=== PATIENT | female | born 1995 | race Caucasian/White ===

== ENCOUNTER 2018-08-27 18:54 | Emergency (ER) | payer BC ==
[2018-08-27 19:57] LABS: Urine Appearance Cloudy; Urine Bacteria Absent (Absent); Urine Bilirubin Negative (Negative); Urine Blood 3+ (Negative); Urine Color Yellow; Urine Glucose Negative (Negative); Urine Ketones Negative (Negative); Urine Nitrite Negative (Negative); Urine Protein Negative (Negative); Urine Red Blood Cell 2+(6-10/hpf) (Absent); Urine Specific Gravity 1.021 (1.010-1.030); Urine Squamous Epithelial Cell Present (Absent); Urine Urobilinogen Negative (Negative); Urine White Blood Cell Trace(0-5/hpf) (Absent)
[2018-08-27 20:54] LABS: ABS Basophils 0.1 10^3/ul (0-0.2); ABS Eosinophils 0.2 10^3/ul (0-0.6); ABS Lymphocytes 4.5 10^3/ul (1.0-4.8); ABS Monocytes 0.6 10^3/ul (0-0.8); ABS Neutrophils 5.8 10^3/ul (1.5-7.7); ABS Nucleated RBC 0 10^3/ul; Eosinophil % 1.7 %; Hematocrit 42 % (33-41); Hemoglobin 14.1 g/dL (12.0-16.0); Lymphocyte % 40.5 %; Mean Corpuscular HGB Conc 34 g/dL (31-36); Mean Corpuscular Hemoglobin 30 pg (27-31); Mean Corpuscular Volume 87 fL (80-97); Mean Platelet Volume 9.6 fL (7.4-10.4); Nucleated Red Blood Cells % 0.1; Platelet Count 263 10^3/uL (150-450); Red Blood Count 4.78 10^6 /uL (3.70-4.87); Red Cell Distribution Width 13 % (10.5-15); White Blood Count 11.2 10^3/uL (3.5-10.8)
[2018-08-27 21:08] LABS: ALT 21 U/L (7-52); AST 18 U/L (13-39); Albumin 4.5 g/dL (3.2-5.2); Albumin/Globulin Ratio 1.3 (1-3); Alkaline Phosphatase 58 U/L (34-104); Anion Gap 8 mmol/L (2-11); BUN/Creatinine Ratio 12.5 (8-20); Blood Urea Nitrogen 9 mg/dL (6-24); C Reactive Protein 21.88 mg/L (<8.01); CO2 Carbon Dioxide 26 mmol/L (22-32); Calcium 9.9 mg/dL (8.6-10.3); Chloride 103 mmol/L (101-111); EGFR African American 123.7 (>60); EGFR Non-African American 102.3 (>60); Globulin 3.5 g/dL (2-4); Glucose 93 mg/dL (70-100); Potassium 3.8 mmol/L (3.5-5.0); Sodium 137 mmol/L (135-145)
[2018-08-27 21:14] LABS: HCG Pregnancy < 0.60 mIU/mL
[2018-08-27] MEDS ORDERED: Sucralfate TAB* 1 GM PO ONE (22:48)
[2018-08-27] MEDS ORDERED: Famotidine TAB* 20 MG PO ONE (22:48)
[2018-08-27] MEDS ORDERED: Al Hydrox/Mg Hydrox/Simet LIQ* 30 ML UDC PO ONE (22:49)
[2018-08-27] MEDS ORDERED: Lidocaine 2% VISCOUS* 15 ML UDC PO ONE (22:49)
--- NOTE | 2018-08-27 23:54 | ED ---
GI/ HPI - HPI Summary HPI Summary: 23-year-old female presents with Epigastric pain for the past 3 days. She states it is in the center and noted tonight radiates to the left flank. Denies any urinary symptoms. Denies any nausea vomiting. She admits to occasional heartburn. No chest or shortness breath. she denies any abnormal vaginal discharge. No diarrhea. No blood in stool or dark tarry stool. She did take some Pepto-Bismol which did not help. Never had this pain before. No previous belly surgery. Has no medical conditions. Is nondrinker. - History of Current Complaint Chief Complaint: EDAbdPain Time Seen by Provider: 08/27/18 22:33 Stated Complaint: ABD PAIN PER PT Pain Intensity: 0 - Allergy/Home Medications Allergies/Adverse Reactions: Allergies Allergy/AdvReac Type Severity Reaction Status Date / Time No Known Allergies Allergy Verified 08/27/18 18:58 Home Medications: Home Medications Norethindrone AC-Eth Estradiol [Loestrin 21 1.5-30 Tablet] 1 tab PO DAILY [History Confirmed 08/27/18] PMH/Surg Hx/FS Hx/Imm Hx Endocrine/Hematology History: Denies: Hx Anticoagulant Therapy Cardiovascular History: Denies: Hx Myocardial Infarction Infectious Disease History: No Infectious Disease History: Denies: Traveled Outside the [place] in Last 30 Days - Family History Known Family History: Positive: Non-Contributory - Social History Alcohol Use: Occasionally Substance Use Type: Reports: None Smoking Status (MU): Never Smoked Tobacco Review of Systems Negative: Fever Negative: Chest Pain Negative: Shortness Of Breath Positive: Abdominal Pain. Negative: Vomiting, Nausea All Other Systems Reviewed And Are Negative: Yes Physical Exam Triage Information Reviewed: Yes Vital Signs On Initial Exam: Initial Vitals Temp Pulse Resp BP Pulse Ox 97.6 F 88 14 135/84 98 08/27/18 18:59 08/27/18 18:59 08/27/18 18:59 08/27/18 18:59 08/27/18 18:59 Vital Signs Reviewed: Yes Appearance: Positive: Well-Appearing Skin: Positive: Warm, Dry Head/Face: Positive: Normal Head/Face Inspection Eyes: Positive: Normal, Conjunctiva Clear ENT: Positive: Pharynx normal Respiratory/Lung Sounds: Positive: Clear to Auscultation, Breath Sounds Present Cardiovascular: Positive: Normal, RRR Abdomen Description: Positive: Nontender, Soft Bowel Sounds: Positive: Present Musculoskeletal: Positive: Normal Neurological: Positive: Normal Psychiatric: Positive: Normal Diagnostics - Vital Signs Vital Signs Temp Pulse Resp BP Pulse Ox 08/27/18 23:01 73 139/90 99 08/27/18 23:00 91 99 08/27/18 22:41 98.6 F 08/27/18 22:30 83 177/91 100 08/27/18 20:02 98 F 76 20 125/72 100 08/27/18 18:59 97.6 F 88 14 135/84 98 - Laboratory Lab Results: Lab Results 08/27/18 08/27/18 08/27/18 Range/Units 19:45 20:43 20:43 WBC 11.2 H (3.5-10.8) 10^3/uL RBC 4.78 (3.70-4.87) 10^6 /uL Hgb 14.1 (12.0-16.0) g/dL Hct 42 H (33-41) % MCV 87 (80-97) fL MCH 30 (27-31) pg MCHC 34 (31-36) g/dL RDW 13 (10.5-15) % Plt Count 263 (150-450) 10^3/uL MPV 9.6 (7.4-10.4) fL Neut % (Auto) 51.3 % Lymph % (Auto) 40.5 % [place] % (Auto) 5.7 % Eos % (Auto) 1.7 % Baso % (Auto) 0.8 % Absolute Neuts (auto) 5.8 (1.5-7.7) 10^3/ul Absolute Lymphs (auto) 4.5 (1.0-4.8) 10^3/ul Absolute Monos (auto) 0.6 (0-0.8) 10^3/ul Absolute Eos (auto) 0.2 (0-0.6) 10^3/ul Absolute Basos (auto) 0.1 (0-0.2) 10^3/ul Absolute Nucleated RBC 0 10^3/ul Nucleated RBC % 0.1 Sodium 137 (135-145) mmol/L Potassium 3.8 (3.5-5.0) mmol/L Chloride 103 (101-111) mmol/L Carbon Dioxide 26 (22-32) mmol/L Anion Gap 8 (2-11) mmol/L BUN 9 (6-24) mg/dL Creatinine 0.72 (0.51-0.95) mg/dL Est GFR ( Amer) 123.7 (>60) Est GFR (Non-Af Amer) 102.3 (>60) BUN/Creatinine Ratio 12.5 (8-20) Glucose 93 (70-100) mg/dL Lactic Acid (0.5-2.0) mmol/L Calcium 9.9 (8.6-10.3) mg/dL Total Bilirubin 0.20 (0.2-1.0) mg/dL AST 18 (13-39) U/L ALT 21 (7-52) U/L Alkaline Phosphatase 58 (34-104) U/L C-Reactive Protein 21.88 H (<8.01) mg/L Total Protein 8.0 (6.4-8.9) g/dL Albumin 4.5 (3.2-5.2) g/dL Globulin 3.5 (2-4) g/dL Albumin/Globulin Ratio 1.3 (1-3) Lipase 28 (11.0-82.0) U/L Beta HCG, Quant < 0.60 mIU/mL Urine Color Yellow Urine Appearance Cloudy Urine pH 5.0 (5-9) Ur Specific [place] 1.021 (1.010-1.030) Urine Protein Negative (Negative) Urine Ketones Negative (Negative) Urine Blood 3+ A (Negative) Urine Nitrate Negative (Negative) Urine Bilirubin Negative (Negative) Urine Urobilinogen Negative (Negative) Ur Leukocyte Esterase Trace A (Negative) Urine WBC (Auto) Trace(0-5/hpf) (Absent) Urine RBC (Auto) 2+(6-10/hpf) A (Absent) Ur Squamous Epith Cells Present A (Absent) Urine Bacteria Absent (Absent) Hyaline Casts Present A (Absent) Urine Glucose Negative (Negative) 08/27/18 Range/Units 20:43 WBC (3.5-10.8) 10^3/uL RBC (3.70-4.87) 10^6 /uL Hgb (12.0-16.0) g/dL Hct (33-41) % MCV (80-97) fL MCH (27-31) pg MCHC (31-36) g/dL RDW (10.5-15) % Plt Count (150-450) 10^3/uL MPV (7.4-10.4) fL Neut % (Auto) % Lymph % (Auto) % [place] % (Auto) % Eos % (Auto) % Baso % (Auto) % Absolute Neuts (auto) (1.5-7.7) 10^3/ul Absolute Lymphs (auto) (1.0-4.8) 10^3/ul Absolute Monos (auto) (0-0.8) 10^3/ul Absolute Eos (auto) (0-0.6) 10^3/ul Absolute Basos (auto) (0-0.2) 10^3/ul Absolute Nucleated RBC 10^3/ul Nucleated RBC % Sodium (135-145) mmol/L Potassium (3.5-5.0) mmol/L Chloride (101-111) mmol/L Carbon Dioxide (22-32) mmol/L Anion Gap (2-11) mmol/L BUN (6-24) mg/dL Creatinine (0.51-0.95) mg/dL Est GFR ( Amer) (>60) Est GFR (Non-Af Amer) (>60) BUN/Creatinine Ratio (8-20) Glucose (70-100) mg/dL Lactic Acid 1.1 (0.5-2.0) mmol/L Calcium (8.6-10.3) mg/dL Total Bilirubin (0.2-1.0) mg/dL AST (13-39) U/L ALT (7-52) U/L Alkaline Phosphatase (34-104) U/L C-Reactive Protein (<8.01) mg/L Total Protein (6.4-8.9) g/dL Albumin (3.2-5.2) g/dL Globulin (2-4) g/dL Albumin/Globulin Ratio (1-3) Lipase (11.0-82.0) U/L Beta HCG, Quant mIU/mL Urine Color Urine Appearance Urine pH (5-9) Ur Specific [place] (1.010-1.030) Urine Protein (Negative) Urine Ketones (Negative) Urine Blood (Negative) Urine Nitrate (Negative) Urine Bilirubin (Negative) Urine Urobilinogen (Negative) Ur Leukocyte Esterase (Negative) Urine WBC (Auto) (Absent) Urine RBC (Auto) (Absent) Ur Squamous Epith Cells (Absent) Urine Bacteria (Absent) Hyaline Casts (Absent) Urine Glucose (Negative) Result Diagrams: 08/27/18 20:43 08/27/18 20:43 Lab Statement: Any lab studies that have been ordered have been reviewed, and results considered in the medical decision making process. Re-Evaluation - Re-Evaluation First Eval Re-Evaluation Time: 23:50 Change: Improved Comment: feeling better GIGU Course/Dx - Course Course Of Treatment: 23-year-old female presents with Epigastric pain for the past 3 days. She states it is in the center and noted tonight radiates to the left flank. Denies any urinary symptoms. Denies any nausea vomiting. She admits to occasional heartburn. No chest or shortness breath. she denies any abnormal vaginal discharge. No diarrhea. No blood in stool or dark tarry stool. She did take some Pepto-Bismol which did not help. Never had this pain before. No previous belly surgery. Has no medical conditions. Is nondrinker. On exam nontender abdomen. wbc normal. Urine likely contaminant. Denies any UTI symptoms at this time. Gave GI cocktail and Pepcid and feeling better. Was prescribe omeprazole for at home. Told to follow-up GI no improvement. Patient understands agrees plan. - Diagnoses Differential Diagnoses - Female: Cholelithiasis, Gastritis, Urinary Tract Infection Provider Diagnoses: Epigastric pain Discharge - Sign-Out/Discharge Documenting (check all that apply): Patient Departure Patient Received Moderate/Deep Sedation with Procedure: No - Discharge Plan Condition: Good Disposition: HOME Prescriptions: Al Hydrox/Mg Hydrox/Simet LIQ* [Maalox Plus*] 30 ml PO Q6H PRN #1 bottle PRN Reason: Dyspepsia Omeprazole 20 mg PO DAILY #14 capsule. Patient Education Materials: Diet for Stomach Ulcers and Gastritis (ED) Referrals: Juan Carlos Simmons MD [Medical Doctor] - Additional Instructions: Take omeprazole once a day Take Maalox 30ml every 6 hours for epigastric pain as needed Avoid acidic foods Elevated head of bed Stay upright for at least 30 mins after eating Follow up with GI if no improvement Return to ED if develop any new or worsening symptoms - Billing Disposition and Condition Condition: GOOD Disposition: Home
[2018-08-28 00:18] VITALS: BP 122/90
== END 2018-08-28 00:18 | disposition home or self-care (01) ==
LOC: ED 18:54
DX: R10.13 Epigastric pain (principal)
CPT/HCPCS: 36415; 80053; 81003; 81015; 83605; 83690; 84702; 85025; 86140; 87086; 99283; A9270-GY